=== PATIENT | female | born 1960 | race African-American/Black ===

== ENCOUNTER 2017-09-28 14:54 | Inpatient (IN) | payer MEDICARE, MEDICAID ==
[~2017-09-28] VITALS: Ht 162.6 cm; Wt 68.0 kg
[2017-09-28] MEDS ORDERED: LORA2VIA33 IJ (15:11)
[2017-09-28 16:27] LABS: INR 1.8; PROTHROMBIN TIME 19.1 sec (9.4-11.6)
[2017-09-28 16:29] LABS: CHLORIDE 95 mEq/L (98-107)
[2017-09-28 16:34] LABS: BASOPHILS % 0.2 % (0.0-2.0); HEMATOCRIT. 35.8 % (36.0-48.0); HEMOGLOBIN. 10.5 g/dL (12.0-16.0); LYMPHOCYTES % 7.9 % (20.0-50.0); MEAN CORPUSCULAR HEMOGLOBIN 32.6 pg (28.0-32.0); MEAN CORPUSCULAR VOLUME 110.9 fL (81.0-99.0); MEAN PLATELET VOLUME 11.3 fl (7.4-10.4); MONOCYTES % 5.4 % (2.0-8.0); NEUTROPHILS % 86.5 % (40.0-76.0); RED BLOOD CELL COUNT 3.23 mill/uL (4.2-5.4); RED CELL DISTRIBUTION WIDTH 22.9 % (11.6-14.6)
[2017-09-28 16:40] LABS: PLATELET 45 x1000/uL (130-400)
[2017-09-28] MEDS ORDERED: HALOPERIDOL LACTATE 5MG/ML VIAL IM ONE (16:45)
[2017-09-28 17:04] LABS: PLATELET ESTIMATE MARKEDLY DECREASED
[2017-09-29] VITALS (7 sets, daily range): BP systolic 99–149; BP diastolic 52–75
[2017-09-29] MEDS ORDERED: LORA2VIA33 PO (04:27)
[2017-09-29] MEDS ORDERED: FERR325T6 PO (04:27)
[2017-09-29] MEDS ORDERED: NEPVIT PO (04:27)
[2017-09-29] MEDS ORDERED: ASPI-1159 PO (04:27)
[2017-09-29] MEDS ORDERED: OCD PO (04:27)
[2017-09-29] MEDS ORDERED: FOLI-43 PO (04:30)
[2017-09-29] MEDS ORDERED: DULO60CA44 PO (04:30)
[2017-09-29] MEDS ORDERED: ZOLPIDEM TARTRATE 5MG TABLET PO PRN (04:45)
[2017-09-29] MEDS ORDERED: LORAZEPAM 0.5MG TABLET PO PRN (04:45)
[2017-09-29] MEDS ORDERED: LACTULOSE 20G/30ML UDC PO PRN (04:45)
[2017-09-29] MEDS ORDERED: DILTIAZEM HCL 5MG/ML 5ML VIAL IV PRN ×2 (04:45→16:45)
[2017-09-29] MEDS ORDERED: TRAMADOL 50MG TABLET PO PRN (04:45)
[2017-09-29] MEDS ORDERED: ACETAMINOPHEN 325MG TABLET PO PRN (04:45)
[2017-09-29] MEDS ORDERED: DILTIAZEM HCL 5MG/ML 5ML VIAL IV NR (05:00)
[2017-09-29] MEDS: FERROUS SULFATE 325MG TABLET PO SCH ×3 (07:50→18:29)
[2017-09-29] MEDS: CALCIUM CARBONATE/VITAMIN D3 500MG TABLET PO SCH ×3 (07:50→18:29)
[2017-09-29] MEDS: FOLIC ACID/VITAMIN B COMP W-C TABLET PO SCH (08:54)
[2017-09-29] MEDS: DULOXETINE HCL 60MG DR CAPSULE PO SCH (08:54)
[2017-09-29] MEDS ORDERED: MEDICATION NOT ON FORMULARY EA (Ferrous Sulfate 325 MG) PO SCH (09:00)
[2017-09-29] MEDS ORDERED: FOLIC ACID 1MG TABLET PO SCH (09:00)
[2017-09-29] MEDS ORDERED: METOPROLOL TARTRATE 5MG/5ML VIAL IV PRN ×2 (09:15→09:30)
[2017-09-29] MEDS ORDERED: DILTIAZEM HCL 30MG TABLET PO SCH ×2 (15:15→18:00)
[2017-09-29 18:03] LABS: HEMATOCRIT. 36.4 % (36.0-48.0); HEMOGLOBIN. 11.2 g/dL (12.0-16.0); MEAN CORPUSCULAR VOLUME 107.1 fL (81.0-99.0); MEAN PLATELET VOLUME 10.5 fl (7.4-10.4); RED CELL DISTRIBUTION WIDTH 23.1 % (11.6-14.6)
[2017-09-29 18:10] LABS: PLATELET 49 x1000/uL (130-400)
[2017-09-29 18:14] LABS: PHOSPHORUS 6.7 mg/dL (2.5-4.9)
[2017-09-29 18:17] LABS: CHLORIDE 94 mEq/L (98-107)
[2017-09-29] MEDS: DILTIAZEM HCL 30MG TABLET PO SCH (18:34)
[2017-09-29 18:38] LABS: NUCLEATED RED BLOOD CELLS 3 /100 WBC
[2017-09-29 18:39] LABS: PLATELET ESTIMATE MARKEDLY DECREASED
[2017-09-30] VITALS: BP 99/64
[2017-09-30 04:00] VITALS: BP 115/67
[2017-09-30] MEDS: DILTIAZEM HCL 30MG TABLET PO SCH ×2 (05:33)
[2017-09-30] MEDS: FOLIC ACID/VITAMIN B COMP W-C TABLET PO SCH (08:18)
[2017-09-30] MEDS: FERROUS SULFATE 325MG TABLET PO SCH ×3 (08:18→17:50)
[2017-09-30] MEDS: DULOXETINE HCL 60MG DR CAPSULE PO SCH (08:18)
[2017-09-30] MEDS: CALCIUM CARBONATE/VITAMIN D3 500MG TABLET PO SCH ×3 (08:18→17:50)
[2017-09-30 08:42] VITALS: BP 109/55
[2017-09-30] MEDS ORDERED: DILTIAZEM HCL 5MG/ML 5ML VIAL IV SCH (10:15)
[2017-09-30] MEDS: DILTIAZEM HCL 60MG TABLET PO SCH ×2 (12:00→18:00)
[2017-09-30 12:51] VITALS: BP 105/69
[2017-09-30 16:27] VITALS: BP 110/70
[2017-09-30] MEDS ORDERED: DIATR MEGLU/DIATRIZOATE SOLN 30ML PO SCH (17:30)
[2017-09-30] MEDS: INSULIN LISPRO 100 UNITS/ML SUBCUT SCH ×2 (17:50→21:00)
[2017-09-30] MEDS: BLOOD SUGAR DIAGNOSTIC STRIP TEST SCH ×2 (17:59→20:34)
[2017-09-30] MEDS ORDERED: DIATR MEGLU/DIATRIZOATE SOLN 30ML PO NR (19:45)
[2017-09-30 20:00] VITALS: BP 120/75
[2017-09-30] MEDS ORDERED: IOHEXOL-300 100 ML BOTTLE ONE (23:25)
[2017-10-01] VITALS: BP 115/85
[2017-10-01] MEDS: DILTIAZEM HCL 60MG TABLET PO SCH ×5 (00:50→19:01)
[2017-10-01 04:00] VITALS: BP 96/56
[2017-10-01] MEDS: BLOOD SUGAR DIAGNOSTIC STRIP TEST SCH ×3 (06:49→21:40)
[2017-10-01 08:00] VITALS: BP 107/62
[2017-10-01 08:24] LABS: HEMATOCRIT. 32.4 % (36.0-48.0); MEAN CORPUSCULAR HEMOGLOBIN 32.6 pg (28.0-32.0); MEAN PLATELET VOLUME 11.1 fl (7.4-10.4); RED BLOOD CELL COUNT 3.06 mill/uL (4.2-5.4); RED CELL DISTRIBUTION WIDTH 22.7 % (11.6-14.6)
[2017-10-01 08:31] LABS: PLATELET 32 x1000/uL (130-400)
[2017-10-01] MEDS: FERROUS SULFATE 325MG TABLET PO SCH ×4 (09:00→19:01)
[2017-10-01] MEDS: FOLIC ACID/VITAMIN B COMP W-C TABLET PO SCH (09:00)
[2017-10-01] MEDS: DULOXETINE HCL 60MG DR CAPSULE PO SCH (09:00)
[2017-10-01] MEDS: CALCIUM CARBONATE/VITAMIN D3 500MG TABLET PO SCH ×4 (09:01→19:02)
[2017-10-01] MEDS: INSULIN LISPRO 100 UNITS/ML SUBCUT SCH ×4 (09:02→21:00)
[2017-10-01 12:00] VITALS: BP 101/63
[2017-10-01 12:51] LABS: PLATELET ESTIMATE MARKEDLY DECREASED
[2017-10-01 16:00] VITALS: BP 106/66
[2017-10-01 16:11] LABS: AMMONIA 35 uMol/L (<32)
[2017-10-01 16:41] LABS: FERRITIN 1188 ng/mL (10-291)
[2017-10-01 16:43] LABS: VITAMIN B12 SERUM >2000 pg/mL pg/mL (211-911)
[2017-10-01 20:28] VITALS: BP 107/68
[2017-10-02] VITALS: BP 122/70
[2017-10-02 04:00] VITALS: BP 105/62
[2017-10-02] MEDS: DILTIAZEM HCL 60MG TABLET PO SCH ×3 (05:51→18:31)
[2017-10-02 06:59] LABS: BASOPHILS % 0.2 % (0.0-2.0); HEMATOCRIT. 32.5 % (36.0-48.0); LYMPHOCYTES % 8.1 % (20.0-50.0); MEAN CORPUSCULAR VOLUME 107.6 fL (81.0-99.0); MEAN PLATELET VOLUME 10.1 fl (7.4-10.4); NEUTROPHILS % 87.7 % (40.0-76.0); RED BLOOD CELL COUNT 3.02 mill/uL (4.2-5.4); RED CELL DISTRIBUTION WIDTH 23.3 % (11.6-14.6)
[2017-10-02 07:19] LABS: CARCINO EMBRYONIC ANTIGEN 0.9 ng/ml
[2017-10-02 07:27] LABS: PHOSPHORUS 5.8 mg/dL (2.5-4.9)
[2017-10-02 07:30] LABS: HEPATITIS B SURFACE ANTIGEN NEGATIVE
[2017-10-02] MEDS: INSULIN LISPRO 100 UNITS/ML SUBCUT SCH ×4 (07:50→21:00)
[2017-10-02] MEDS: BLOOD SUGAR DIAGNOSTIC STRIP TEST SCH ×4 (07:53→21:00)
[2017-10-02 07:58] LABS: HEPATITIS B CORE AB IGM NEGATIVE
[2017-10-02 08:00] LABS: HEPATITIS A AB IGM NEGATIVE (NEGATIVE)
[2017-10-02 08:12] VITALS: BP 107/73
[2017-10-02 09:06] LABS: IMMUNOGLOBULIN A 160 mg/dL (87-352); IMMUNOGLOBULIN G 3276 mg/dL (700-1600); IMMUNOGLOBULIN M 199 mg/dL (26-217)
[2017-10-02] MEDS: FOLIC ACID/VITAMIN B COMP W-C TABLET PO SCH (09:49)
[2017-10-02] MEDS: DULOXETINE HCL 60MG DR CAPSULE PO SCH (09:49)
[2017-10-02 10:43] LABS: PLATELET 18 x1000/uL (130-400)
[2017-10-02] MEDS: CALCIUM CARBONATE/VITAMIN D3 500MG TABLET PO SCH ×2 (11:57→18:31)
[2017-10-02] MEDS: FERROUS SULFATE 325MG TABLET PO SCH ×2 (11:57→18:31)
[2017-10-02] MEDS ORDERED: LEVOFLOXACIN 500MG TABLET PO NR (12:00)
[2017-10-02 12:08] VITALS: BP 102/45
[2017-10-02] MEDS ORDERED: VERAPAMIL HCL 2.5 MG/1 ML 2ML VIAL IV PRN (13:30)
[2017-10-02] MEDS ORDERED: DIGOXIN 500MCG/2ML AMP IV NR (13:30)
[2017-10-02] MEDS ORDERED: SODIUM CHLORIDE 0.9% 10ML VIAL ONE (15:14)
[2017-10-02 16:51] VITALS: BP 108/76
[2017-10-02] MEDS: SEVELAMER CARBONATE 800 MG TABLET PO SCH (18:31)
[2017-10-02 20:00] VITALS: BP 107/71
[2017-10-02] MEDS: METRONIDAZOLE 500MG TABLET PO SCH (22:11)
[2017-10-03] VITALS: BP 106/74
[2017-10-03 04:00] VITALS: BP 102/54
[2017-10-03] MEDS: DILTIAZEM HCL 60MG TABLET PO SCH ×4 (06:00→18:01)
[2017-10-03] MEDS: BLOOD SUGAR DIAGNOSTIC STRIP TEST SCH ×4 (06:49→21:00)
[2017-10-03 06:50] LABS: BASOPHILS % 0.3 % (0.0-2.0); HEMATOCRIT. 32.1 % (36.0-48.0); HEMOGLOBIN. 10.3 g/dL (12.0-16.0); LYMPHOCYTES % 8.5 % (20.0-50.0); MEAN CORPUSCULAR HEMOGLOBIN 34.8 pg (28.0-32.0); MEAN CORPUSCULAR VOLUME 108.2 fL (81.0-99.0); MEAN PLATELET VOLUME 7.6 fl (7.4-10.4); MONOCYTES % 4.2 % (2.0-8.0); RED BLOOD CELL COUNT 2.97 mill/uL (4.2-5.4); RED CELL DISTRIBUTION WIDTH 22.9 % (11.6-14.6)
[2017-10-03] MEDS: INSULIN LISPRO 100 UNITS/ML SUBCUT SCH ×4 (07:12→22:01)
[2017-10-03 07:27] LABS: PLATELET 14 x1000/uL (130-400)
[2017-10-03 07:42] LABS: AMMONIA 35 uMol/L (<32)
[2017-10-03 08:00] VITALS: BP 113/70
[2017-10-03 08:08] LABS: CHLORIDE 102 mEq/L (98-107)
[2017-10-03 08:44] LABS: HAPTOGLOBIN <31.0 mg/dL (30-200)
[2017-10-03] MEDS: METRONIDAZOLE 500MG TABLET PO SCH ×2 (09:23→21:43)
[2017-10-03] MEDS: FOLIC ACID/VITAMIN B COMP W-C TABLET PO SCH (09:23)
[2017-10-03] MEDS: DULOXETINE HCL 60MG DR CAPSULE PO SCH (09:23)
[2017-10-03] MEDS: FERROUS SULFATE 325MG TABLET PO SCH ×3 (09:23→18:01)
[2017-10-03] MEDS: SEVELAMER CARBONATE 800 MG TABLET PO SCH ×3 (09:23→18:01)
[2017-10-03] MEDS: CALCIUM CARBONATE/VITAMIN D3 500MG TABLET PO SCH ×3 (09:24→18:01)
[2017-10-03] MEDS: LEVOTHYROXINE SODIUM 25MCG TABLET PO SCH (09:24)
[2017-10-03] MEDS ORDERED: DILTIAZEM HCL 30MG TABLET PO NR ×2 (11:00→13:20)
[2017-10-03 12:00] VITALS: BP 119/77
[2017-10-03 13:51] LABS: PLATELET ESTIMATE MARKEDLY DECREASED
[2017-10-03 16:00] VITALS: BP 108/76
[2017-10-03 20:00] VITALS: BP 108/76
[2017-10-04] VITALS: BP 107/62
[2017-10-04] MEDS: DILTIAZEM HCL 60MG TABLET PO SCH ×4 (00:56→18:04)
[2017-10-04 04:00] VITALS: BP 110/75
[2017-10-04] MEDS: LEVOTHYROXINE SODIUM 25MCG TABLET PO SCH (06:52)
[2017-10-04] MEDS: BLOOD SUGAR DIAGNOSTIC STRIP TEST SCH ×4 (06:52→20:43)
[2017-10-04 08:00] VITALS: BP 100/56
[2017-10-04] MEDS: DULOXETINE HCL 60MG DR CAPSULE PO SCH (09:19)
[2017-10-04] MEDS: SEVELAMER CARBONATE 800 MG TABLET PO SCH ×3 (09:19→18:04)
[2017-10-04] MEDS: FOLIC ACID/VITAMIN B COMP W-C TABLET PO SCH (09:19)
[2017-10-04] MEDS: FERROUS SULFATE 325MG TABLET PO SCH ×3 (09:20→18:04)
[2017-10-04] MEDS: METRONIDAZOLE 500MG TABLET PO SCH ×2 (09:20→20:42)
[2017-10-04] MEDS: INSULIN LISPRO 100 UNITS/ML SUBCUT SCH ×4 (09:25→20:43)
[2017-10-04] MEDS: CALCIUM CARBONATE/VITAMIN D3 500MG TABLET PO SCH ×3 (09:28→18:04)
[2017-10-04 12:00] VITALS: BP 103/71
[2017-10-04] MEDS: LEVOFLOXACIN 250MG TABLET PO SCH (12:53)
[2017-10-04 16:04] VITALS: BP 105/71
[2017-10-04] MEDS ORDERED: ALBUMIN HUMAN 25GM/100ML (25%) IV NR (19:00)
[2017-10-04 20:00] VITALS: BP 109/64
[2017-10-05] VITALS (12 sets, daily range): BP systolic 94–130; BP diastolic 45–72
[2017-10-05] MEDS: DILTIAZEM HCL 60MG TABLET PO SCH ×4 (05:36→17:37)
[2017-10-05] MEDS: LEVOTHYROXINE SODIUM 25MCG TABLET PO SCH (05:36)
[2017-10-05] MEDS: INSULIN LISPRO 100 UNITS/ML SUBCUT SCH ×5 (06:57→20:38)
[2017-10-05 07:58] LABS: CHLORIDE 98 mEq/L (98-107); HDL CHOLESTEROL 9 mg/dL (40-59); LDL CHOLESTEROL 63 mg/dL (5-100); PHOSPHORUS 6.5 mg/dL (2.5-4.9)
[2017-10-05] MEDS: FERROUS SULFATE 325MG TABLET PO SCH ×4 (08:18→17:45)
[2017-10-05] MEDS: METRONIDAZOLE 500MG TABLET PO SCH ×2 (08:18→20:53)
[2017-10-05] MEDS: FOLIC ACID/VITAMIN B COMP W-C TABLET PO SCH (08:18)
[2017-10-05] MEDS: SEVELAMER CARBONATE 800 MG TABLET PO SCH ×4 (08:18→17:45)
[2017-10-05] MEDS: DULOXETINE HCL 60MG DR CAPSULE PO SCH (08:18)
[2017-10-05] MEDS: CALCIUM CARBONATE/VITAMIN D3 500MG TABLET PO SCH ×4 (08:18→17:47)
[2017-10-05] MEDS: BLOOD SUGAR DIAGNOSTIC STRIP TEST SCH ×4 (08:19→20:38)
[2017-10-05] MEDS: ALBUMIN HUMAN 25GM/100ML (25%) IV SCH ×2 (11:05→16:58)
[2017-10-05 15:10] LABS: HEMATOCRIT. 30.2 % (36.0-48.0); HEMOGLOBIN. 9.1 g/dL (12.0-16.0); MEAN CORPUSCULAR HEMOGLOBIN 33.6 pg (28.0-32.0); MEAN CORPUSCULAR VOLUME 111.5 fL (81.0-99.0); MEAN PLATELET VOLUME 10.6 fl (7.4-10.4); RED BLOOD CELL COUNT 2.71 mill/uL (4.2-5.4); RED CELL DISTRIBUTION WIDTH 23.7 % (11.6-14.6)
[2017-10-05 15:19] LABS: PLATELET 13 x1000/uL (130-400)
[2017-10-05 15:21] LABS: INR 1.9; PROTHROMBIN TIME 20.4 sec (9.4-11.6)
[2017-10-05] MEDS ORDERED: ONDANSETRON HCL 4MG/2ML VIAL IV PRN (16:00)
[2017-10-05 16:18] LABS: PLATELET ESTIMATE MARKEDLY DECREASED
[2017-10-06] VITALS: BP 127/51
[2017-10-06] MEDS: DILTIAZEM HCL 60MG TABLET PO SCH ×5 (00:59→17:05)
[2017-10-06 04:02] VITALS: BP 130/50
[2017-10-06] MEDS: LEVOTHYROXINE SODIUM 25MCG TABLET PO SCH (06:37)
[2017-10-06] MEDS: BLOOD SUGAR DIAGNOSTIC STRIP TEST SCH ×4 (06:41→21:56)
[2017-10-06] MEDS: DEXTROSE 50% WATER 50ML SYRINGE IV PRN (06:45)
[2017-10-06 07:39] LABS: PROTHROMBIN TIME 20.7 sec (9.4-11.6)
[2017-10-06 07:42] LABS: HEMATOCRIT. 30.2 % (36.0-48.0); HEMOGLOBIN. 9.2 g/dL (12.0-16.0); MEAN CORPUSCULAR HEMOGLOBIN 33.9 pg (28.0-32.0); MEAN CORPUSCULAR VOLUME 110.6 fL (81.0-99.0); RED BLOOD CELL COUNT 2.73 mill/uL (4.2-5.4); RED CELL DISTRIBUTION WIDTH 23.2 % (11.6-14.6)
[2017-10-06 07:49] LABS: PLATELET 29 x1000/uL (130-400)
[2017-10-06] MEDS: INSULIN LISPRO 100 UNITS/ML SUBCUT SCH ×4 (07:50→21:56)
[2017-10-06] MEDS: FERROUS SULFATE 325MG TABLET PO SCH ×3 (07:50→17:04)
[2017-10-06] MEDS: CALCIUM CARBONATE/VITAMIN D3 500MG TABLET PO SCH ×3 (07:50→17:05)
[2017-10-06] MEDS: SEVELAMER CARBONATE 800 MG TABLET PO SCH ×3 (07:50→17:04)
[2017-10-06 08:15] VITALS: BP 152/68
[2017-10-06] MEDS: METRONIDAZOLE 500MG TABLET PO SCH ×2 (08:18→21:43)
[2017-10-06] MEDS: DULOXETINE HCL 60MG DR CAPSULE PO SCH (08:18)
[2017-10-06] MEDS: FOLIC ACID/VITAMIN B COMP W-C TABLET PO SCH (08:18)
[2017-10-06 08:24] LABS: PHOSPHORUS 7.1 mg/dL (2.5-4.9)
[2017-10-06 08:29] LABS: PLATELET ESTIMATE MARKEDLY DECREASED
[2017-10-06] MEDS: ALBUMIN HUMAN 25GM/100ML (25%) IV SCH ×2 (10:50→17:04)
[2017-10-06] MEDS: LEVOFLOXACIN 250MG TABLET PO SCH (10:51)
[2017-10-06 12:20] VITALS: BP 128/56
[2017-10-06 15:10] LABS: METHYLMALONIC ACID 809 nmol/L (0-378)
[2017-10-06 16:29] VITALS: BP 126/84
[2017-10-06 19:47] VITALS: BP 97/62
[2017-10-06] MEDS: EPOETIN ALFA 4000UNITS/ML VIAL SUBCUT SCH (21:43)
[2017-10-07 00:10] VITALS: BP 98/69
[2017-10-07] MEDS: DILTIAZEM HCL 60MG TABLET PO SCH ×4 (00:30→17:15)
[2017-10-07 04:42] VITALS: BP 103/66
[2017-10-07] MEDS: BLOOD SUGAR DIAGNOSTIC STRIP TEST SCH ×4 (06:30→21:18)
[2017-10-07] MEDS: LEVOTHYROXINE SODIUM 25MCG TABLET PO SCH (06:57)
[2017-10-07 07:03] LABS: HEMATOCRIT 28.5 % (36.0-48.0); HEMOGLOBIN 8.8 g/dL (12.0-16.0); MEAN CORPUSCULAR HEMOGLOBIN 35.2 pg (28.0-32.0); MEAN CORPUSCULAR VOLUME 113.7 fL (81.0-99.0); RED CELL DISTRIBUTION WIDTH 23.7 % (11.6-14.6)
[2017-10-07 07:28] LABS: CHLORIDE 100 mEq/L (98-107)
[2017-10-07] MEDS: INSULIN LISPRO 100 UNITS/ML SUBCUT SCH ×4 (07:37→21:21)
[2017-10-07] MEDS: CALCIUM CARBONATE/VITAMIN D3 500MG TABLET PO SCH ×3 (07:49→17:15)
[2017-10-07] MEDS: FERROUS SULFATE 325MG TABLET PO SCH ×3 (07:49→17:14)
[2017-10-07] MEDS: SEVELAMER CARBONATE 800 MG TABLET PO SCH ×3 (07:50→17:14)
[2017-10-07] MEDS: METRONIDAZOLE 500MG TABLET PO SCH ×2 (07:50→21:19)
[2017-10-07] MEDS: DULOXETINE HCL 60MG DR CAPSULE PO SCH (07:50)
[2017-10-07] MEDS: FOLIC ACID/VITAMIN B COMP W-C TABLET PO SCH (07:50)
[2017-10-07 08:00] VITALS: BP 135/60
[2017-10-07 08:19] LABS: PLATELET 18 x1000/uL (130-400)
[2017-10-07] MEDS: ALBUMIN HUMAN 25GM/100ML (25%) IV SCH ×2 (08:40→17:14)
[2017-10-07] MEDS ORDERED: PROPOFOL 200MG/20ML VIAL IV ONE (10:16)
[2017-10-07] MEDS ORDERED: MIDAZOLAM HCL 2 MG/2 ML VIAL ONE (10:16)
[2017-10-07] MEDS ORDERED: FENTANYL CITRATE/PF 50MCG/ML 2ML VIAL ONE (10:16)
[2017-10-07] MEDS ORDERED: LIDOCAINE HCL/PF 1% 10 MG/ML 5ML VIAL ONE (10:37)
[2017-10-07] MEDS ORDERED: LORAZEPAM 2MG/ML CPJ IV NR (10:51)
[2017-10-07] MEDS ORDERED: ONDANSETRON HCL 4MG/2ML VIAL IV NR (10:52)
[2017-10-07] MEDS ORDERED: MEPERIDINE HCL/PF 25MG/ML CPJ IV NR (10:53)
[2017-10-07 12:00] VITALS: BP 101/67
[2017-10-07 16:00] VITALS: BP 103/63
[2017-10-07 20:00] VITALS: BP 105/64
[2017-10-08] VITALS: BP 120/70
[2017-10-08] MEDS: DILTIAZEM HCL 60MG TABLET PO SCH ×5 (02:13→23:52)
[2017-10-08 04:57] VITALS: BP 115/76
[2017-10-08] MEDS: LEVOTHYROXINE SODIUM 25MCG TABLET PO SCH (06:30)
[2017-10-08] MEDS: BLOOD SUGAR DIAGNOSTIC STRIP TEST SCH ×4 (06:30→21:00)
[2017-10-08] MEDS: PREDNISONE 20MG TABLET PO SCH ×3 (06:30→22:13)
[2017-10-08 06:42] LABS: MEAN CORPUSCULAR HEMOGLOBIN 35.2 pg (28.0-32.0); MEAN CORPUSCULAR VOLUME 113.7 fL (81.0-99.0); RED BLOOD CELL COUNT 2.55 mill/uL (4.2-5.4); RED CELL DISTRIBUTION WIDTH 24.3 % (11.6-14.6)
[2017-10-08 07:07] LABS: CHLORIDE 98 mEq/L (98-107)
[2017-10-08] MEDS: INSULIN LISPRO 100 UNITS/ML SUBCUT SCH ×4 (07:50→21:00)
[2017-10-08] MEDS: FERROUS SULFATE 325MG TABLET PO SCH ×3 (09:28→18:50)
[2017-10-08] MEDS: CALCIUM CARBONATE/VITAMIN D3 500MG TABLET PO SCH ×3 (09:29→18:50)
[2017-10-08] MEDS: DULOXETINE HCL 60MG DR CAPSULE PO SCH ×2 (09:29→09:36)
[2017-10-08] MEDS: SEVELAMER CARBONATE 800 MG TABLET PO SCH ×3 (09:29→18:50)
[2017-10-08] MEDS: METRONIDAZOLE 500MG TABLET PO SCH ×2 (09:29→09:37)
[2017-10-08] MEDS: FOLIC ACID/VITAMIN B COMP W-C TABLET PO SCH ×2 (09:29→09:36)
[2017-10-08] MEDS: LEVOFLOXACIN 250MG TABLET PO SCH (11:00)
[2017-10-08 11:39] VITALS: BP 109/74
[2017-10-08 12:08] LABS: PLATELET 17 x1000/uL (130-400)
[2017-10-08] MEDS: LANTHANUM CARBONATE 500MG CHEW TABLET PO SCH ×2 (12:50→18:50)
[2017-10-08 16:00] VITALS: BP 97/58
[2017-10-08 20:00] VITALS: BP 104/53
[2017-10-08 20:50] VITALS: BP 109/60
[2017-10-08] MEDS: DEXTROSE 50% WATER 50ML SYRINGE IV PRN (22:12)
[2017-10-08] MEDS: EPOETIN ALFA 4000UNITS/ML VIAL SUBCUT SCH (22:15)
[2017-10-09] VITALS (28 sets, daily range): BP systolic 65–142; BP diastolic 35–76
[2017-10-09] MEDS: PREDNISONE 20MG TABLET PO SCH ×3 (06:00→21:27)
[2017-10-09] MEDS: DILTIAZEM HCL 60MG TABLET PO SCH ×3 (06:00→18:00)
[2017-10-09 06:55] LABS: INR 3.4; PARTIAL THROMBOPLASTIN TIME 42.9 sec (23.4-31.0); PROTHROMBIN TIME 34.8 sec (9.4-11.6)
[2017-10-09 07:03] LABS: HEMATOCRIT. 31.7 % (36.0-48.0); HEMOGLOBIN. 9.2 g/dL (12.0-16.0); MEAN CORPUSCULAR HEMOGLOBIN 35.9 pg (28.0-32.0); MEAN CORPUSCULAR VOLUME 124.1 fL (81.0-99.0); MEAN PLATELET VOLUME 10.7 fl (7.4-10.4); RED BLOOD CELL COUNT 2.55 mill/uL (4.2-5.4); RED CELL DISTRIBUTION WIDTH 24.8 % (11.6-14.6)
[2017-10-09] MEDS: LEVOTHYROXINE SODIUM 25MCG TABLET PO SCH (07:20)
[2017-10-09] MEDS: BLOOD SUGAR DIAGNOSTIC STRIP TEST SCH ×4 (07:33→21:00)
[2017-10-09 07:37] LABS: PLATELET 13 x1000/uL (130-400)
[2017-10-09] MEDS: LANTHANUM CARBONATE 500MG CHEW TABLET PO SCH ×3 (07:50→18:29)
[2017-10-09] MEDS: SEVELAMER CARBONATE 800 MG TABLET PO SCH ×3 (07:50→18:29)
[2017-10-09] MEDS: FERROUS SULFATE 325MG TABLET PO SCH ×3 (07:50→18:29)
[2017-10-09] MEDS: CALCIUM CARBONATE/VITAMIN D3 500MG TABLET PO SCH ×3 (07:50→18:29)
[2017-10-09] MEDS: INSULIN LISPRO 100 UNITS/ML SUBCUT SCH (07:50)
[2017-10-09 07:51] LABS: CHLORIDE 100 mEq/L (98-107)
[2017-10-09] MEDS ORDERED: GLUCAGON,HUMAN RECOMBINANT 1MG/VIAL IM PRN (08:15)
[2017-10-09] MEDS: DEXTROSE 50% WATER 50ML SYRINGE IV PRN (08:35)
[2017-10-09] MEDS ORDERED: PHYTONADIONE 5MG TABLET PO ONE (08:45)
[2017-10-09] MEDS: METRONIDAZOLE 500MG TABLET PO SCH ×2 (09:00→21:27)
[2017-10-09] MEDS ORDERED: PHYTONADIONE 10MG/ML AMP PO NR (09:00)
[2017-10-09] MEDS ORDERED: LIDOCAINE HCL/PF 1% 10 MG/ML 5ML VIAL ONE (09:55)
[2017-10-09] MEDS ORDERED: EPINEPHRINE 0.1MG/ML (1:10,000) 10ML SYR ONE (10:00)
[2017-10-09] MEDS ORDERED: SODIUM BICARBONATE 7.5% 0.9 MEQ/ML 50ML SYR IV ONE (10:00)
[2017-10-09] MEDS ORDERED: ETOMIDATE 2MG/ML 10ML VIAL IV ONE (10:00)
[2017-10-09 10:24] LABS: NUCLEATED RED BLOOD CELLS 3 /100 WBC
[2017-10-09 10:25] LABS: PLATELET ESTIMATE MARKEDLY DECREASED
[2017-10-09] MEDS ORDERED: SODIUM BICARBONATE 8.4% 1 MEQ/ML 50ML SYR IV ONE (10:47)
[2017-10-09] MEDS ORDERED: SODIUM BICARBONATE 8.4% 1 MEQ/ML 50ML SYR IV NR ×2 (11:00→11:15)
[2017-10-09 11:01] LABS: BG BASE EXCESS -23.2 mmol/L (-2.0-2.0); BG CARBOXYHEMOGLOBIN 1.4 % (0.5-1.5); BG DEOXYHEMOGLOBIN 40.6 % (0.0-5.0); BG FRACTION INSPIRED OXYGEN 36; BG HCO3 ACT 6.9 mmol/L (22.0-26.0); BG METHEMOGLOBIN 0.5 % (0.0-1.5); BG OXYGEN SATURATION 58.6 % (92.0-98.5); BG OXYHEMOGLOBIN 57.5 % (94.0-97.0); BG PCO2 29.8 mmHg (35.0-45.0); BG PO2 49.3 mmHg (75.0-100.0); BG SAMPLE SITE RIGHT BRACHIAL; BG TOTAL HEMOGLOBIN 8.5 g/dL (12.0-18.0); BG VENT MODE NASAL CANNULA
[2017-10-09] MEDS ORDERED: PROPOFOL 10MG/ML 100ML 100 ML IV PRN (11:30)
[2017-10-09] MEDS: NOREPINEPHRINE 8 MG in DEXT 5% WATER 242 ML IV PRN ×2 (13:02→16:16)
[2017-10-09] MEDS ORDERED: GENTAMICIN SULFATE 160 MG in SODIUM CHLORIDE 0.9% 50 ML IV SCH (16:00)
[2017-10-09] MEDS ORDERED: VANCOMYCIN 1500MG in DEXTROSE 5% WATER 250ML IV SCH (16:00)
[2017-10-09 16:40] LABS: BG BASE EXCESS -9.3 mmol/L (-2.0-2.0); BG CARBOXYHEMOGLOBIN 1.2 % (0.5-1.5); BG DEOXYHEMOGLOBIN 0.3 % (0.0-5.0); BG HCO3 ACT 14.6 mmol/L (22.0-26.0); BG METHEMOGLOBIN 0.2 % (0.0-1.5); BG OXYGEN SATURATION 99.7 % (92.0-98.5); BG OXYHEMOGLOBIN 98.3 % (94.0-97.0); BG PCO2 25.7 mmHg (35.0-45.0); BG PH 7.372 (7.350-7.450); BG PO2 464.1 mmHg (75.0-100.0); BG SAMPLE SITE RIGHT RADIAL; BG TIDAL VOLUME(mL) 550 mL; BG TOTAL HEMOGLOBIN 9.9 g/dL (12.0-18.0); BG VENT MODE VENT - A/C; BG VENT RATE 22 set
[2017-10-10] VITALS (98 sets, daily range): BP systolic 60–134; BP diastolic 23–72
[2017-10-10] MEDS: DILTIAZEM HCL 60MG TABLET PO SCH ×5 (00:23→23:52)
[2017-10-10] MEDS: NOREPINEPHRINE 8 MG in DEXT 5% WATER 242 ML IV PRN ×2 (01:47→14:50)
[2017-10-10 05:41] LABS: HEMATOCRIT. 26.1 % (36.0-48.0); HEMOGLOBIN. 7.6 g/dL (12.0-16.0); MEAN CORPUSCULAR HEMOGLOBIN 35.3 pg (28.0-32.0); MEAN CORPUSCULAR VOLUME 120.6 fL (81.0-99.0); MEAN PLATELET VOLUME 9.3 fl (7.4-10.4); RED BLOOD CELL COUNT 2.16 mill/uL (4.2-5.4); RED CELL DISTRIBUTION WIDTH 25.3 % (11.6-14.6)
[2017-10-10] MEDS: SODIUM BICARBONATE 100 MEQ in DEXTROSE 5% WATER 1,000 ML IV SCH (05:54)
[2017-10-10] MEDS: PREDNISONE 20MG TABLET PO SCH ×3 (06:00→22:14)
[2017-10-10] MEDS: LEVOTHYROXINE SODIUM 25MCG TABLET PO SCH (06:30)
[2017-10-10] MEDS: FERROUS SULFATE 325MG TABLET PO SCH ×3 (07:00→16:11)
[2017-10-10] MEDS: CALCIUM CARBONATE/VITAMIN D3 500MG TABLET PO SCH ×3 (07:00→16:11)
[2017-10-10] MEDS: LANTHANUM CARBONATE 500MG CHEW TABLET PO SCH ×3 (07:00→18:27)
[2017-10-10] MEDS: SEVELAMER CARBONATE 800 MG TABLET PO SCH ×3 (07:00→16:11)
[2017-10-10] MEDS: BLOOD SUGAR DIAGNOSTIC STRIP TEST SCH ×3 (07:13→18:30)
[2017-10-10 07:15] LABS: NUCLEATED RED BLOOD CELLS 6 /100 WBC
[2017-10-10 07:16] LABS: PLATELET ESTIMATE MARKEDLY DECREASED
[2017-10-10 07:17] LABS: PLATELET 15 x1000/uL (130-400)
[2017-10-10] MEDS: FOLIC ACID/VITAMIN B COMP W-C TABLET PO SCH (08:09)
[2017-10-10] MEDS: DULOXETINE HCL 60MG DR CAPSULE PO SCH (08:09)
[2017-10-10 08:23] LABS: BG BASE EXCESS -5.8 mmol/L (-2.0-2.0); BG CARBOXYHEMOGLOBIN 1.7 % (0.5-1.5); BG DEOXYHEMOGLOBIN 1.7 % (0.0-5.0); BG FRACTION INSPIRED OXYGEN 50; BG HCO3 ACT 18.6 mmol/L (22.0-26.0); BG METHEMOGLOBIN 0.3 % (0.0-1.5); BG OXYGEN SATURATION 98.3 % (92.0-98.5); BG OXYHEMOGLOBIN 96.3 % (94.0-97.0); BG PCO2 31.9 mmHg (35.0-45.0); BG PH 7.383 (7.350-7.450); BG PO2 114.6 mmHg (75.0-100.0); BG SAMPLE SITE RIGHT RADIAL; BG TIDAL VOLUME(mL) 550 mL; BG TOTAL HEMOGLOBIN 8.6 g/dL (12.0-18.0); BG VENT MODE VENT - A/C; BG VENT RATE 18 set
[2017-10-10] MEDS: LEVOFLOXACIN 250MG TABLET PO SCH (12:07)
[2017-10-10] MEDS ORDERED: LEVOTHYROXINE SODIUM 100 MCG/ VIAL IV SCH (13:30)
[2017-10-10] MEDS: LEVOTHYROXINE SODIUM 100 MCG/ VIAL IV SCH (18:30)
[2017-10-10] MEDS: PANTOPRAZOLE SODIUM 40 MG/VIAL IV SCH (18:30)
[2017-10-10 20:37] LABS: HEMATOCRIT 27.8 % (36.0-48.0)
[2017-10-10 22:14] LABS: HEMATOCRIT 27.9 % (36.0-48.0); HEMOGLOBIN 9.1 g/dL (12.0-16.0)
[2017-10-10] MEDS: CYANOCOBALAMIN 1000MCG TABLET NG SCH (23:46)
[2017-10-11] VITALS (89 sets, daily range): BP systolic 83–134; BP diastolic 48–72
[2017-10-11 01:00] LABS: HEMATOCRIT 27.2 % (36.0-48.0); HEMOGLOBIN 8.7 g/dL (12.0-16.0)
[2017-10-11 05:31] LABS: HEMATOCRIT 27.3 % (36.0-48.0); HEMOGLOBIN 8.7 g/dL (12.0-16.0)
[2017-10-11] MEDS: SODIUM BICARBONATE 100 MEQ in DEXTROSE 5% WATER 1,000 ML IV SCH (06:40)
[2017-10-11] MEDS: PREDNISONE 20MG TABLET PO SCH ×2 (06:40→14:00)
[2017-10-11] MEDS: DILTIAZEM HCL 60MG TABLET PO SCH ×3 (06:41→17:21)
[2017-10-11] MEDS: BLOOD SUGAR DIAGNOSTIC STRIP TEST SCH ×4 (06:44→17:22)
[2017-10-11] MEDS: CALCIUM CARBONATE/VITAMIN D3 500MG TABLET PO SCH ×3 (07:00→16:58)
[2017-10-11] MEDS: CYANOCOBALAMIN 1000MCG TABLET NG SCH (07:00)
[2017-10-11] MEDS: LANTHANUM CARBONATE 500MG CHEW TABLET PO SCH ×3 (07:00→16:58)
[2017-10-11] MEDS: SEVELAMER CARBONATE 800 MG TABLET PO SCH ×3 (07:00→16:58)
[2017-10-11] MEDS: FERROUS SULFATE 325MG TABLET PO SCH ×3 (07:00→16:58)
[2017-10-11 07:26] LABS: BG BASE EXCESS 4.2 mmol/L (-2.0-2.0); BG CARBOXYHEMOGLOBIN 2.3 % (0.5-1.5); BG HCO3 ACT 27.1 mmol/L (22.0-26.0); BG METHEMOGLOBIN 0.2 % (0.0-1.5); BG OXYGEN SATURATION 87.7 % (92.0-98.5); BG OXYHEMOGLOBIN 85.5 % (94.0-97.0); BG PCO2 33.6 mmHg (35.0-45.0); BG PH 7.524 (7.350-7.450); BG PO2 53.7 mmHg (75.0-100.0); BG SAMPLE SITE RIGHT RADIAL; BG TIDAL VOLUME(mL) 550 mL; BG TOTAL HEMOGLOBIN 9.4 g/dL (12.0-18.0); BG VENT MODE VENT - A/C; BG VENT RATE 16 set
[2017-10-11] MEDS: DULOXETINE HCL 60MG DR CAPSULE PO SCH (09:00)
[2017-10-11] MEDS: PANTOPRAZOLE SODIUM 40 MG/VIAL IV SCH ×2 (09:16→17:17)
[2017-10-11] MEDS: LEVOTHYROXINE SODIUM 100 MCG/ VIAL IV SCH (09:16)
[2017-10-11] MEDS: FOLIC ACID/VITAMIN B COMP W-C TABLET PO SCH (09:17)
[2017-10-11 11:42] LABS: HEMATOCRIT. 26.5 % (36.0-48.0); HEMOGLOBIN. 8.5 g/dL (12.0-16.0); MEAN CORPUSCULAR HEMOGLOBIN 33.2 pg (28.0-32.0); MEAN CORPUSCULAR VOLUME 103.9 fL (81.0-99.0); MEAN PLATELET VOLUME 9.9 fl (7.4-10.4); RED BLOOD CELL COUNT 2.55 mill/uL (4.2-5.4); RED CELL DISTRIBUTION WIDTH 27.3 % (11.6-14.6)
[2017-10-11 11:50] LABS: PLATELET 13 x1000/uL (130-400)
[2017-10-11] MEDS ORDERED: VANCOMYCIN 750 MG PREMIX 150 ML IV SCH (12:00)
[2017-10-11] MEDS: INSULIN LISPRO 100 UNITS/ML SUBCUT SCH ×2 (12:36→17:18)
[2017-10-11 12:42] LABS: BG BASE EXCESS 5.5 mmol/L (-2.0-2.0); BG CARBOXYHEMOGLOBIN 2.2 % (0.5-1.5); BG DEOXYHEMOGLOBIN 4.2 % (0.0-5.0); BG HCO3 ACT 28.1 mmol/L (22.0-26.0); BG METHEMOGLOBIN 0.1 % (0.0-1.5); BG OXYGEN SATURATION 95.7 % (92.0-98.5); BG OXYHEMOGLOBIN 93.5 % (94.0-97.0); BG PCO2 33.5 mmHg (35.0-45.0); BG PH 7.542 (7.350-7.450); BG PO2 75.5 mmHg (75.0-100.0); BG SAMPLE SITE RIGHT RADIAL; BG TIDAL VOLUME(mL) 550 mL; BG TOTAL HEMOGLOBIN 9.4 g/dL (12.0-18.0); BG VENT MODE VENT - A/C; BG VENT RATE 12 set
[2017-10-11 12:54] LABS: NUCLEATED RED BLOOD CELLS 1 /100 WBC; PLATELET ESTIMATE MARKEDLY DECREASED
[2017-10-11] MEDS: METHYLPREDNISOLONE SOD SUCC 125 MG/2 ML VIAL IV SCH (22:59)
[2017-10-12] VITALS (99 sets, daily range): BP systolic 86–121; BP diastolic 40–85
[2017-10-12] MEDS: BLOOD SUGAR DIAGNOSTIC STRIP TEST SCH ×4 (00:09→17:10)
[2017-10-12] MEDS: INSULIN LISPRO 100 UNITS/ML SUBCUT SCH ×4 (00:13→17:10)
[2017-10-12] MEDS: DILTIAZEM HCL 60MG TABLET PO SCH ×4 (06:00→17:07)
[2017-10-12] MEDS: SODIUM BICARBONATE 100 MEQ in DEXTROSE 5% WATER 1,000 ML IV SCH (06:18)
[2017-10-12] MEDS: METHYLPREDNISOLONE SOD SUCC 125 MG/2 ML VIAL IV SCH ×3 (06:18→23:00)
[2017-10-12] MEDS: SEVELAMER CARBONATE 800 MG TABLET PO SCH ×3 (07:00→16:13)
[2017-10-12] MEDS: CALCIUM CARBONATE/VITAMIN D3 500MG TABLET PO SCH ×3 (07:00→16:13)
[2017-10-12] MEDS: LANTHANUM CARBONATE 500MG CHEW TABLET PO SCH ×3 (07:00→16:13)
[2017-10-12] MEDS: FERROUS SULFATE 325MG TABLET PO SCH ×3 (07:00→16:13)
[2017-10-12] MEDS: CYANOCOBALAMIN 1000MCG TABLET NG SCH (07:00)
[2017-10-12 07:25] LABS: BG BASE EXCESS 5.9 mmol/L (-2.0-2.0); BG CARBOXYHEMOGLOBIN 2.2 % (0.5-1.5); BG DEOXYHEMOGLOBIN 8.8 % (0.0-5.0); BG HCO3 ACT 28.4 mmol/L (22.0-26.0); BG METHEMOGLOBIN 0.1 % (0.0-1.5); BG OXYHEMOGLOBIN 88.9 % (94.0-97.0); BG PH 7.552 (7.350-7.450); BG PO2 58.6 mmHg (75.0-100.0); BG SAMPLE SITE RIGHT RADIAL; BG TIDAL VOLUME(mL) 550 mL; BG TOTAL HEMOGLOBIN 9.3 g/dL (12.0-18.0); BG VENT MODE VENT - A/C; BG VENT RATE 12 set
[2017-10-12] MEDS: FOLIC ACID/VITAMIN B COMP W-C TABLET PO SCH (08:16)
[2017-10-12] MEDS: PANTOPRAZOLE SODIUM 40 MG/VIAL IV SCH ×2 (08:17→16:14)
[2017-10-12] MEDS: DULOXETINE HCL 60MG DR CAPSULE PO SCH (08:17)
[2017-10-12] MEDS: LEVOTHYROXINE SODIUM 100 MCG/ VIAL IV SCH (08:17)
[2017-10-12 13:00] LABS: HEMATOCRIT. 26.6 % (36.0-48.0); HEMOGLOBIN. 8.5 g/dL (12.0-16.0); MEAN CORPUSCULAR HEMOGLOBIN 32.9 pg (28.0-32.0); MEAN CORPUSCULAR VOLUME 102.4 fL (81.0-99.0); MEAN PLATELET VOLUME 10.6 fl (7.4-10.4); RED BLOOD CELL COUNT 2.59 mill/uL (4.2-5.4)
[2017-10-12 13:15] LABS: PLATELET 11 x1000/uL (130-400)
[2017-10-12 13:26] LABS: NUCLEATED RED BLOOD CELLS 2 /100 WBC; PLATELET ESTIMATE MARKEDLY DECREASED
[2017-10-13] VITALS (54 sets, daily range): BP systolic 85–124; BP diastolic 47–70
[2017-10-13] MEDS: BLOOD SUGAR DIAGNOSTIC STRIP TEST SCH ×4 (00:58→17:01)
[2017-10-13] MEDS: DILTIAZEM HCL 60MG TABLET PO SCH ×4 (00:58→17:11)
[2017-10-13] MEDS: SODIUM BICARBONATE 100 MEQ in DEXTROSE 5% WATER 1,000 ML IV SCH (03:44)
[2017-10-13] MEDS: METHYLPREDNISOLONE SOD SUCC 125 MG/2 ML VIAL IV SCH ×3 (06:35→22:14)
[2017-10-13] MEDS: LANTHANUM CARBONATE 500MG CHEW TABLET PO SCH ×3 (06:38→17:10)
[2017-10-13] MEDS: SEVELAMER CARBONATE 800 MG TABLET PO SCH ×3 (06:38→17:11)
[2017-10-13] MEDS: CALCIUM CARBONATE/VITAMIN D3 500MG TABLET PO SCH ×3 (06:39→17:11)
[2017-10-13] MEDS: FERROUS SULFATE 325MG TABLET PO SCH ×3 (06:39→17:11)
[2017-10-13] MEDS: CYANOCOBALAMIN 1000MCG TABLET NG SCH (06:39)
[2017-10-13] MEDS: INSULIN LISPRO 100 UNITS/ML SUBCUT SCH ×4 (06:40→17:05)
[2017-10-13 06:42] LABS: HEMATOCRIT. 27.2 % (36.0-48.0); HEMOGLOBIN. 8.9 g/dL (12.0-16.0); MEAN CORPUSCULAR HEMOGLOBIN 33.5 pg (28.0-32.0); MEAN CORPUSCULAR VOLUME 102.5 fL (81.0-99.0); MEAN PLATELET VOLUME 10.7 fl (7.4-10.4); RED BLOOD CELL COUNT 2.65 mill/uL (4.2-5.4); RED CELL DISTRIBUTION WIDTH 24.8 % (11.6-14.6)
[2017-10-13 07:03] LABS: PLATELET 11 x1000/uL (130-400)
[2017-10-13] MEDS: DULOXETINE HCL 60MG DR CAPSULE PO SCH (08:17)
[2017-10-13] MEDS: PANTOPRAZOLE SODIUM 40 MG/VIAL IV SCH ×2 (08:17→17:11)
[2017-10-13] MEDS: FOLIC ACID/VITAMIN B COMP W-C TABLET PO SCH (08:17)
[2017-10-13] MEDS: LEVOTHYROXINE SODIUM 100 MCG/ VIAL IV SCH (08:17)
[2017-10-13 11:47] LABS: NUCLEATED RED BLOOD CELLS 1 /100 WBC; PLATELET ESTIMATE MARKEDLY DECREASED
[2017-10-13] MEDS: METHYLPREDNISOLONE SOD SUCC 40 MG/ML VIAL IV SCH ×2 (12:34→17:10)
[2017-10-13 13:07] LABS: BG CARBOXYHEMOGLOBIN 1.1 % (0.5-1.5); BG DEOXYHEMOGLOBIN 0.6 % (0.0-5.0); BG FRACTION INSPIRED OXYGEN 65; BG HCO3 ACT 28.6 mmol/L (22.0-26.0); BG METHEMOGLOBIN 0.3 % (0.0-1.5); BG OXYGEN SATURATION 99.4 % (92.0-98.5); BG PCO2 29.9 mmHg (35.0-45.0); BG PH 7.599 (7.350-7.450); BG PO2 159.6 mmHg (75.0-100.0); BG SAMPLE SITE RIGHT RADIAL; BG TIDAL VOLUME(mL) 550 mL; BG TOTAL HEMOGLOBIN 9.9 g/dL (12.0-18.0); BG VENT MODE VENT - A/C; BG VENT RATE 10 set
[2017-10-13] MEDS ORDERED: VANCOMYCIN 750 MG PREMIX 150 ML IV NR (14:00)
[2017-10-13] MEDS ORDERED: GENTAMICIN SULFATE 100 MG in SODIUM CHLORIDE 0.9% 100 ML IV NR (16:00)
[2017-10-14] VITALS (23 sets, daily range): BP systolic 99–137; BP diastolic 46–82
[2017-10-14] MEDS: BLOOD SUGAR DIAGNOSTIC STRIP TEST SCH ×5 (00:38→23:54)
[2017-10-14] MEDS: DILTIAZEM HCL 60MG TABLET PO SCH ×5 (00:38→23:55)
[2017-10-14] MEDS: INSULIN LISPRO 100 UNITS/ML SUBCUT SCH ×5 (00:38→23:54)
[2017-10-14] MEDS: METHYLPREDNISOLONE SOD SUCC 40 MG/ML VIAL IV SCH ×3 (02:00→17:18)
[2017-10-14 05:35] LABS: PARTIAL THROMBOPLASTIN TIME 29.9 sec (23.4-31.0); PROTHROMBIN TIME 20.7 sec (9.4-11.6)
[2017-10-14] MEDS: METHYLPREDNISOLONE SOD SUCC 125 MG/2 ML VIAL IV SCH (06:00)
[2017-10-14] MEDS: CALCIUM CARBONATE/VITAMIN D3 500MG TABLET PO SCH ×3 (06:34→17:18)
[2017-10-14] MEDS: LANTHANUM CARBONATE 500MG CHEW TABLET PO SCH ×3 (06:34→17:18)
[2017-10-14] MEDS: CYANOCOBALAMIN 1000MCG TABLET NG SCH (06:34)
[2017-10-14] MEDS: FERROUS SULFATE 325MG TABLET PO SCH ×3 (06:34→17:18)
[2017-10-14] MEDS: SEVELAMER CARBONATE 800 MG TABLET PO SCH ×3 (06:34→17:18)
[2017-10-14 07:50] LABS: BG BASE EXCESS 3.3 mmol/L (-2.0-2.0); BG CARBOXYHEMOGLOBIN 1.4 % (0.5-1.5); BG DEOXYHEMOGLOBIN 0.8 % (0.0-5.0); BG FRACTION INSPIRED OXYGEN 65; BG HCO3 ACT 24.9 mmol/L (22.0-26.0); BG METHEMOGLOBIN 0.3 % (0.0-1.5); BG OXYGEN SATURATION 99.2 % (92.0-98.5); BG OXYHEMOGLOBIN 97.5 % (94.0-97.0); BG PCO2 28.8 mmHg (35.0-45.0); BG PH 7.554 (7.350-7.450); BG PO2 141.9 mmHg (75.0-100.0); BG SAMPLE SITE RIGHT BRACHIAL; BG TIDAL VOLUME(mL) 550 mL; BG TOTAL HEMOGLOBIN 12.5 g/dL (12.0-18.0); BG VENT MODE VENT - A/C; BG VENT RATE 10 set
[2017-10-14] MEDS: DULOXETINE HCL 60MG DR CAPSULE PO SCH (11:40)
[2017-10-14] MEDS: PANTOPRAZOLE SODIUM 40 MG/VIAL IV SCH ×2 (11:40→17:18)
[2017-10-14] MEDS: LEVOTHYROXINE SODIUM 100 MCG/ VIAL IV SCH (11:40)
[2017-10-14] MEDS: FOLIC ACID/VITAMIN B COMP W-C TABLET PO SCH (11:40)
[2017-10-14 12:14] LABS: HEMATOCRIT. 30.7 % (36.0-48.0); MEAN CORPUSCULAR HEMOGLOBIN 33.9 pg (28.0-32.0); MEAN CORPUSCULAR VOLUME 103.6 fL (81.0-99.0); MEAN PLATELET VOLUME 9.9 fl (7.4-10.4); RED BLOOD CELL COUNT 2.96 mill/uL (4.2-5.4); RED CELL DISTRIBUTION WIDTH 25.5 % (11.6-14.6)
[2017-10-14 12:21] LABS: CHLORIDE 94 mEq/L (98-107)
[2017-10-14 12:23] LABS: PLATELET 18 x1000/uL (130-400)
[2017-10-14 13:44] LABS: PLATELET ESTIMATE MARKEDLY DECREASED
[2017-10-14] MEDS: METOCLOPRAMIDE HCL 5MG TABLET PO SCH (23:54)
[2017-10-15] VITALS (59 sets, daily range): BP systolic 78–115; BP diastolic 31–78
[2017-10-15 05:49] LABS: HEMATOCRIT. 28.4 % (36.0-48.0); HEMOGLOBIN. 9.1 g/dL (12.0-16.0); MEAN CORPUSCULAR HEMOGLOBIN 33.7 pg (28.0-32.0); MEAN CORPUSCULAR VOLUME 105.5 fL (81.0-99.0); MEAN PLATELET VOLUME 10.4 fl (7.4-10.4); RED BLOOD CELL COUNT 2.69 mill/uL (4.2-5.4); RED CELL DISTRIBUTION WIDTH 25.1 % (11.6-14.6)
[2017-10-15] MEDS: INSULIN LISPRO 100 UNITS/ML SUBCUT SCH ×3 (06:00→19:14)
[2017-10-15 06:08] LABS: PLATELET 20 x1000/uL (130-400)
[2017-10-15] MEDS: METHYLPREDNISOLONE SOD SUCC 40 MG/ML VIAL IV SCH ×2 (06:32→18:55)
[2017-10-15] MEDS: BLOOD SUGAR DIAGNOSTIC STRIP TEST SCH ×3 (06:32→18:49)
[2017-10-15] MEDS: LANTHANUM CARBONATE 500MG CHEW TABLET PO SCH (06:43)
[2017-10-15] MEDS: CALCIUM CARBONATE/VITAMIN D3 500MG TABLET PO SCH (06:43)
[2017-10-15] MEDS: SEVELAMER CARBONATE 800 MG TABLET PO SCH (06:44)
[2017-10-15] MEDS: CYANOCOBALAMIN 1000MCG TABLET NG SCH (06:44)
[2017-10-15] MEDS: METOCLOPRAMIDE HCL 5MG TABLET PO SCH ×2 (06:44→11:29)
[2017-10-15] MEDS: FERROUS SULFATE 325MG TABLET PO SCH (06:44)
[2017-10-15] MEDS: DILTIAZEM HCL 60MG TABLET PO SCH (06:44)
[2017-10-15 07:12] LABS: NUCLEATED RED BLOOD CELLS 1 /100 WBC
[2017-10-15 07:13] LABS: PLATELET ESTIMATE MARKEDLY DECREASED
[2017-10-15 08:30] LABS: BG BASE EXCESS 1.9 mmol/L (-2.0-2.0); BG CARBOXYHEMOGLOBIN 1.9 % (0.5-1.5); BG DEOXYHEMOGLOBIN 1.3 % (0.0-5.0); BG FRACTION INSPIRED OXYGEN 50; BG HCO3 ACT 24.9 mmol/L (22.0-26.0); BG METHEMOGLOBIN 0.2 % (0.0-1.5); BG OXYGEN SATURATION 98.7 % (92.0-98.5); BG OXYHEMOGLOBIN 96.6 % (94.0-97.0); BG PCO2 32.6 mmHg (35.0-45.0); BG PH 7.501 (7.350-7.450); BG PO2 118.9 mmHg (75.0-100.0); BG SAMPLE SITE RIGHT RADIAL; BG TIDAL VOLUME(mL) 550 mL; BG TOTAL HEMOGLOBIN 8.9 g/dL (12.0-18.0); BG VENT MODE VENT - A/C; BG VENT RATE 10 set
[2017-10-15] MEDS ORDERED: HEPARIN SODIUM 1,000 UNIT/1ML VIAL IV SCH (09:00)
[2017-10-15] MEDS: FOLIC ACID/VITAMIN B COMP W-C TABLET PO SCH (09:00)
[2017-10-15] MEDS: PANTOPRAZOLE SODIUM 40 MG/VIAL IV SCH ×2 (10:39→18:55)
[2017-10-15] MEDS: LEVOTHYROXINE SODIUM 100 MCG/ VIAL IV SCH (11:02)
[2017-10-15 13:07] LABS: ANTI-PARIETAL CELL AB 3.6 Units (0.0-20.0)
[2017-10-15] MEDS ORDERED: MORPHINE SULFATE 4 MG/ML CPJ (NOT FOR IM USE) IV PRN (17:45)
[2017-10-16] VITALS (56 sets, daily range): BP systolic 80–167; BP diastolic 34–117
[2017-10-16] MEDS: BLOOD SUGAR DIAGNOSTIC STRIP TEST SCH ×5 (00:08→23:49)
[2017-10-16] MEDS: INSULIN LISPRO 100 UNITS/ML SUBCUT SCH ×5 (00:20→23:50)
[2017-10-16] MEDS: PANTOPRAZOLE SODIUM 40 MG/VIAL IV SCH ×2 (08:18→17:57)
[2017-10-16 08:28] LABS: HEMATOCRIT. 28.6 % (36.0-48.0); MEAN CORPUSCULAR HEMOGLOBIN 33.3 pg (28.0-32.0); MEAN CORPUSCULAR VOLUME 106.2 fL (81.0-99.0); MEAN PLATELET VOLUME 11.3 fl (7.4-10.4); RED CELL DISTRIBUTION WIDTH 24.9 % (11.6-14.6)
[2017-10-16 08:33] LABS: PLATELET 40 x1000/uL (130-400)
[2017-10-16 08:43] LABS: BG BASE EXCESS 0.6 mmol/L (-2.0-2.0); BG DEOXYHEMOGLOBIN 1.5 % (0.0-5.0); BG FRACTION INSPIRED OXYGEN 40; BG HCO3 ACT 24.3 mmol/L (22.0-26.0); BG METHEMOGLOBIN 0.3 % (0.0-1.5); BG OXYGEN SATURATION 98.5 % (92.0-98.5); BG OXYHEMOGLOBIN 96.2 % (94.0-97.0); BG PCO2 35.3 mmHg (35.0-45.0); BG PH 7.455 (7.350-7.450); BG PO2 119.2 mmHg (75.0-100.0); BG SAMPLE SITE RIGHT RADIAL; BG TIDAL VOLUME(mL) 550 mL; BG TOTAL HEMOGLOBIN 10.1 g/dL (12.0-18.0); BG VENT MODE VENT - A/C; BG VENT RATE 10 set
[2017-10-16] MEDS: LEVOTHYROXINE SODIUM 100 MCG/ VIAL IV SCH (09:00)
[2017-10-16] MEDS: METHYLPREDNISOLONE SOD SUCC 40 MG/ML VIAL IV SCH ×2 (09:13→17:57)
[2017-10-16] MEDS ORDERED: DIATR MEGLU/DIATRIZOATE SOLN 30ML PO SCH (09:15)
[2017-10-16 09:28] LABS: PLATELET ESTIMATE MARKEDLY DECREASED
[2017-10-16] MEDS ORDERED: DIATR MEGLU/DIATRIZOATE SOLN 30ML ONE (09:59)
[2017-10-16] MEDS ORDERED: IOHEXOL-300 100 ML BOTTLE ONE (13:42)
[2017-10-16] MEDS ORDERED: NOREPINEPHRINE 8 MG in SODIUM CHLORIDE 0.9% 242 ML IV PRN (15:30)
[2017-10-16] MEDS: DEXT 5%/0.9% NACL 1,000 ML IV SCH (17:58)
[2017-10-17] VITALS (70 sets, daily range): BP systolic 92–164; BP diastolic 49–70
[2017-10-17 05:42] LABS: HEMATOCRIT. 27.8 % (36.0-48.0); HEMOGLOBIN. 9.1 g/dL (12.0-16.0); MEAN CORPUSCULAR HEMOGLOBIN 34.6 pg (28.0-32.0); MEAN CORPUSCULAR VOLUME 105.4 fL (81.0-99.0); MEAN PLATELET VOLUME 11.2 fl (7.4-10.4); RED BLOOD CELL COUNT 2.64 mill/uL (4.2-5.4); RED CELL DISTRIBUTION WIDTH 24.6 % (11.6-14.6)
[2017-10-17 06:17] LABS: PLATELET 42 x1000/uL (130-400)
[2017-10-17] MEDS: BLOOD SUGAR DIAGNOSTIC STRIP TEST SCH ×3 (06:22→17:53)
[2017-10-17] MEDS: INSULIN LISPRO 100 UNITS/ML SUBCUT SCH ×3 (06:35→17:59)
[2017-10-17 07:54] LABS: BG BASE EXCESS 0.6 mmol/L (-2.0-2.0); BG CARBOXYHEMOGLOBIN 1.9 % (0.5-1.5); BG CPAP (cmH2O) 0 cm(H2O); BG DEOXYHEMOGLOBIN 2.2 % (0.0-5.0); BG HCO3 ACT 24.8 mmol/L (22.0-26.0); BG METHEMOGLOBIN 0.3 % (0.0-1.5); BG OXYGEN SATURATION 97.8 % (92.0-98.5); BG OXYHEMOGLOBIN 95.6 % (94.0-97.0); BG PCO2 38.1 mmHg (35.0-45.0); BG PH 7.431 (7.350-7.450); BG SAMPLE SITE RIGHT RADIAL; BG TOTAL HEMOGLOBIN 10.2 g/dL (12.0-18.0); BG VENT MODE VENT - CPAP
[2017-10-17] MEDS: PANTOPRAZOLE SODIUM 40 MG/VIAL IV SCH ×2 (08:30→17:57)
[2017-10-17] MEDS: METHYLPREDNISOLONE SOD SUCC 40 MG/ML VIAL IV SCH ×2 (08:30→17:57)
[2017-10-17] MEDS: LEVOTHYROXINE SODIUM 100 MCG/ VIAL IV SCH (08:31)
[2017-10-17 08:46] LABS: PLATELET ESTIMATE DECREASED
[2017-10-17] MEDS ORDERED: HEPARIN SODIUM 1,000 UNIT/1ML VIAL IV NR (10:00)
[2017-10-17] MEDS ORDERED: ZOSYN XX SCH (10:30)
[2017-10-17] MEDS: SEVELAMER CARBONATE 800 MG TABLET PO SCH ×2 (12:00→13:06)
[2017-10-17] MEDS: CALCIUM CARBONATE/VITAMIN D3 500MG TABLET PO SCH ×2 (12:00→13:06)
[2017-10-17] MEDS: DILTIAZEM HCL 60MG TABLET PO SCH ×2 (12:00→13:07)
[2017-10-17] MEDS: LANTHANUM CARBONATE 500MG CHEW TABLET PO SCH ×2 (12:00→13:06)
[2017-10-17] MEDS ORDERED: FERROUS SULFATE 300MG/5ML UDC PO SCH (13:00)
[2017-10-17] MEDS: METOCLOPRAMIDE HCL 5MG TABLET PO SCH (13:06)
[2017-10-17] MEDS: PIPERACILLIN/TAZ 2.25G PREMIX 50 ML IV SCH (13:08)
[2017-10-17] MEDS: DEXT 5%/0.9% NACL 1,000 ML IV SCH (17:57)
[2017-10-17] MEDS ORDERED: GENTAMICIN 100MG PREMIX 50 ML IV NR (18:00)
[2017-10-17] MEDS ORDERED: SODIUM CHLORIDE 0.9% IV SCH (20:00)
[2017-10-17] MEDS ORDERED: GENTAMICIN SULFATE IV SCH (20:00)
[2017-10-17] MEDS ORDERED: VANCOMYCIN 750 MG PREMIX 150 ML IV NR (20:00)
[2017-10-18] VITALS (69 sets, daily range): BP systolic 100–163; BP diastolic 46–82
[2017-10-18] MEDS: INSULIN LISPRO 100 UNITS/ML SUBCUT SCH ×5 (01:51→23:18)
[2017-10-18] MEDS: PIPERACILLIN/TAZ 2.25G PREMIX 50 ML IV SCH ×2 (01:55→12:28)
[2017-10-18 06:03] LABS: HEMATOCRIT. 31.6 % (36.0-48.0); HEMOGLOBIN. 9.9 g/dL (12.0-16.0); MEAN CORPUSCULAR HEMOGLOBIN 33.7 pg (28.0-32.0); MEAN CORPUSCULAR VOLUME 107.7 fL (81.0-99.0); MEAN PLATELET VOLUME 11.7 fl (7.4-10.4); RED BLOOD CELL COUNT 2.93 mill/uL (4.2-5.4); RED CELL DISTRIBUTION WIDTH 25.2 % (11.6-14.6)
[2017-10-18] MEDS: BLOOD SUGAR DIAGNOSTIC STRIP TEST SCH ×5 (06:10→23:18)
[2017-10-18 06:12] LABS: PLATELET 47 x1000/uL (130-400)
[2017-10-18 07:53] LABS: PLATELET ESTIMATE MARKEDLY DECREASED
[2017-10-18 09:17] LABS: PHOSPHORUS 4.1 mg/dL (2.5-4.9)
[2017-10-18] MEDS: LEVOTHYROXINE SODIUM 100 MCG/ VIAL IV SCH (09:47)
[2017-10-18] MEDS: METHYLPREDNISOLONE SOD SUCC 40 MG/ML VIAL IV SCH ×2 (09:47→17:18)
[2017-10-18] MEDS: PANTOPRAZOLE SODIUM 40 MG/VIAL IV SCH ×2 (09:47→17:18)
[2017-10-18 12:29] LABS: PREALBUMIN 10.8 mg/dL (20.0-40.0)
[2017-10-18 12:31] LABS: AMMONIA < 10 uMol/L (<32)
[2017-10-18] MEDS: DEXT 5%/0.9% NACL 1,000 ML IV SCH (17:18)
[2017-10-18] MEDS ORDERED: METOCLOPRAMIDE HCL 10MG/2ML VIAL IV SCH (22:00)
[2017-10-19] VITALS: BP 96/55
[2017-10-19] MEDS ORDERED: SODIUM BICARBONATE 7.5% 0.9 MEQ/ML 50ML SYR IV ONE (02:00)
[2017-10-19] MEDS ORDERED: CALCIUM CHLORIDE 1GM/10ML SYR IV ONE (02:00)
[2017-10-19] MEDS ORDERED: AMIODARONE HCL 50MG/ML 3ML VIAL IV ONE (02:00)
[2017-10-19] MEDS ORDERED: MAGNESIUM SULFATE 4G IN WATER 100ML PREMIX IV ONE (02:00)
[2017-10-19] MEDS ORDERED: EPINEPHRINE 0.1MG/ML (1:10,000) 10ML SYR ONE ×2 (02:00)
== END 2017-10-19 04:00 | disposition expired | DRG 870 ==
LOC: ER 15:06 → 6WST 17:10 → EDBEDREQ 09-29 02:43 → 6WST 09-29 13:34 → 5EST 10-09 09:26 → MICUNO 10-09 11:59 → 5EST 10-18 16:50
PROVIDERS: ADMIT Specialist; ATTEND Specialist
PROC: 5A1D70Z Performance of Urinary Filtration, Intermittent, Less than 6 Hours Per Day (ICD-10-PCS; 2017-09-29)
PROC: 5A1D70Z Performance of Urinary Filtration, Intermittent, Less than 6 Hours Per Day (ICD-10-PCS; 2017-10-01)
PROC: 5A1D70Z Performance of Urinary Filtration, Intermittent, Less than 6 Hours Per Day (ICD-10-PCS; 2017-10-02)
PROC: 5A1D70Z Performance of Urinary Filtration, Intermittent, Less than 6 Hours Per Day (ICD-10-PCS; 2017-10-05)
PROC: 07DQ3ZZ Extraction of Sternum Bone Marrow, Percutaneous Approach (ICD-10-PCS; 2017-10-07)
PROC: 5A1D70Z Performance of Urinary Filtration, Intermittent, Less than 6 Hours Per Day (ICD-10-PCS; 2017-10-08)
PROC: 02HV33Z Insertion of Infusion Device into Superior Vena Cava, Percutaneous Approach (ICD-10-PCS; 2017-10-09)
PROC: B548ZZA Ultrasonography of Superior Vena Cava, Guidance (ICD-10-PCS; 2017-10-09)
PROC: 5A1D70Z Performance of Urinary Filtration, Intermittent, Less than 6 Hours Per Day (ICD-10-PCS; 2017-10-09)
PROC: 5A1D70Z Performance of Urinary Filtration, Intermittent, Less than 6 Hours Per Day (ICD-10-PCS; 2017-10-10)
PROC: 0BH17EZ Insertion of Endotracheal Airway into Trachea, Via Natural or Artificial Opening (ICD-10-PCS; principal; 2017-10-12)
PROC: 5A1955Z Respiratory Ventilation, Greater than 96 Consecutive Hours (ICD-10-PCS; 2017-10-12)
PROC: 5A1D70Z Performance of Urinary Filtration, Intermittent, Less than 6 Hours Per Day (ICD-10-PCS; 2017-10-12)
PROC: 5A1D70Z Performance of Urinary Filtration, Intermittent, Less than 6 Hours Per Day (ICD-10-PCS; 2017-10-14)
PROC: 5A1D70Z Performance of Urinary Filtration, Intermittent, Less than 6 Hours Per Day (ICD-10-PCS; 2017-10-16)
PROC: 5A1D70Z Performance of Urinary Filtration, Intermittent, Less than 6 Hours Per Day (ICD-10-PCS; 2017-10-18)
PROC: 5A12012 Performance of Cardiac Output, Single, Manual (ICD-10-PCS; 2017-10-19)
DX: A41.01 Sepsis due to Methicillin susceptible Staphylococcus aureus (principal); J96.01 Acute respiratory failure with hypoxia; D65 Disseminated intravascular coagulation [defibrination syndrome]; E43 Unspecified severe protein-calorie malnutrition; J15.212 Pneumonia due to Methicillin resistant Staphylococcus aureus; R65.21 Severe sepsis with septic shock; G93.41 Metabolic encephalopathy; K80.63 Calculus of gallbladder and bile duct with acute cholecystitis with obstruction; Z99.11 Dependence on respirator [ventilator] status; N18.6 End stage renal disease; I50.23 Acute on chronic systolic (congestive) heart failure; I13.2 Hypertensive heart and chronic kidney disease with heart failure and with stage 5 chronic kidney disease, or end stage renal disease; D68.9 Coagulation defect, unspecified; K76.6 Portal hypertension; E87.2 Acidosis; I48.1 Persistent atrial fibrillation; E87.1 Hypo-osmolality and hyponatremia; I42.9 Cardiomyopathy, unspecified; K80.71 Calculus of gallbladder and bile duct without cholecystitis with obstruction; I48.92 Unspecified atrial flutter; K92.2 Gastrointestinal hemorrhage, unspecified; K83.0 Cholangitis; K56.0 Paralytic ileus; I46.9 Cardiac arrest, cause unspecified; K70.31 Alcoholic cirrhosis of liver with ascites; D69.6 Thrombocytopenia, unspecified; E87.70 Fluid overload, unspecified; K70.9 Alcoholic liver disease, unspecified; Z99.2 Dependence on renal dialysis; F31.9 Bipolar disorder, unspecified; D63.8 Anemia in other chronic diseases classified elsewhere; B35.1 Tinea unguium; E78.00 Pure hypercholesterolemia, unspecified; E87.5 Hyperkalemia; E87.6 Hypokalemia; F20.9 Schizophrenia, unspecified; I48.91 Unspecified atrial fibrillation; E11.51 Type 2 diabetes mellitus with diabetic peripheral angiopathy without gangrene; E11.22 Type 2 diabetes mellitus with diabetic chronic kidney disease; E03.9 Hypothyroidism, unspecified; E66.01 Morbid (severe) obesity due to excess calories; E88.09 Other disorders of plasma-protein metabolism, not elsewhere classified; G56.00 Carpal tunnel syndrome, unspecified upper limb; F10.20 Alcohol dependence, uncomplicated; E21.1 Secondary hyperparathyroidism, not elsewhere classified; D63.1 Anemia in chronic kidney disease; I70.0 Atherosclerosis of aorta; E11.40 Type 2 diabetes mellitus with diabetic neuropathy, unspecified; E83.39 Other disorders of phosphorus metabolism; E79.0 Hyperuricemia without signs of inflammatory arthritis and tophaceous disease; E11.649 Type 2 diabetes mellitus with hypoglycemia without coma; R74.0 Nonspecific elevation of levels of transaminase and lactic acid dehydrogenase [LDH]; E11.43 Type 2 diabetes mellitus with diabetic autonomic (poly)neuropathy; K31.84 Gastroparesis; Z91.19 Patient's noncompliance with other medical treatment and regimen; Z83.3 Family history of diabetes mellitus; Z79.4 Long term (current) use of insulin; Z79.899 Other long term (current) drug therapy; Z79.82 Long term (current) use of aspirin; Z68.25 Body mass index [BMI] 25.0-25.9, adult; I27.20 Pulmonary hypertension, unspecified; I49.1 Atrial premature depolarization; N27.0 Small kidney, unilateral; I95.3 Hypotension of hemodialysis; I35.1 Nonrheumatic aortic (valve) insufficiency; D51.0 Vitamin B12 deficiency anemia due to intrinsic factor deficiency
CPT/HCPCS: 36415; 36569; 36600; 38220; 71045; 74018; 74177; 74181; 76700; 76937; 78227; 80048; 80053; 80061; 80069; 80076; 80170; 80202; 82140; 82248; 82270; 82375; 82378; 82533; 82550; 82607; 82728; 82746; 82784; 82805; 82947; 82962; 82977; 83010; 83036; 83540; 83550; 83605; 83615; 83735; 83921; 83970; 84100; 84134; 84439; 84443; 84450; 84460; 84478; 84550; 85014; 85018; 85025; 85027; 85060; 85097; 85379; 85384; 85610; 85651; 85730; 85732; 86334; 86340; 86376; 86705; 86709; 86803; 86850; 86880; 86900; 86920; 86945; 87040; 87070; 87077; 87340; 87493; 88313; 93005; 93306; 93970; 94002; 94003; 96372; 97116; 97162; 97166; 97530; 99285; A4216; A6261; A9537; C1725; C1893; C9113; J0171; J0282; J0885; J1160; J1580; J1610; J1630; J1644; J1815; J2250; J2405; J2543; J2704; J2765; J2920; J2930; J3010; J3370; J3430; J3475; J3490; J7030; J7040; J7042; J7050; J7060; J7070; J7512; J8597; P9016; P9034; P9047; Q9963; Q9967